=== PATIENT | female | born 1970 | race Caucasian/White ===

== ENCOUNTER 2017-06-18 05:42 | Emergency (ER) | payer OTHER ==
[2017-06-18 06:33] VITALS: BP 160/97
== END 2017-06-18 06:33 | disposition home or self-care (01) ==
LOC: ED 05:42
DX: R51 Headache (principal); E11.9 Type 2 diabetes mellitus without complications; H05.89 Other disorders of orbit; Z88.2 Allergy status to sulfonamides
CPT/HCPCS: 87491; 87591

== ENCOUNTER 2018-03-12 08:22 | Emergency (ER) | payer OTHER ==
[~2018-03-12] VITALS: Ht 165.1 cm; Wt 53.5 kg
[2018-03-12 08:33] VITALS: Ht 165.1 cm; Wt 53.5 kg
[2018-03-12 11:36] VITALS: BP 118/77
== END 2018-03-12 09:26 | disposition home or self-care (01) ==
LOC: ED 08:22
DX: S22.32XA Fracture of one rib, left side, initial encounter for closed fracture (principal); K59.00 Constipation, unspecified; E11.9 Type 2 diabetes mellitus without complications; F17.200 Nicotine dependence, unspecified, uncomplicated; M19.90 Unspecified osteoarthritis, unspecified site; Z88.2 Allergy status to sulfonamides; W18.39XA Other fall on same level, initial encounter; Y93.89 Activity, other specified; Y92.89 Other specified places as the place of occurrence of the external cause; Y99.8 Other external cause status
CPT/HCPCS: 99406

== ENCOUNTER 2018-06-08 09:11 | Emergency (ER) | payer OTHER ==
[~2018-06-08] VITALS: Ht 170.2 cm; Wt 59.0 kg
[2018-06-08 09:15] VITALS: Ht 170.2 cm; Wt 59.0 kg
[2018-06-08 09:45] VITALS: BP 152/88
[2018-06-08 10:03] LABS: BASOPHIL % 0.4 % (0-2); PLATELET COUNT 184 x10^3mcL (130-400); RED CELL DISTRIBUTION WIDTH 13.2 % (11.5-14.5)
[2018-06-08 10:21] LABS: CALCIUM 8.4 mg/dL (8.5-10.1); CARBON DIOXIDE 29.9 mmol/L (21-32); CHLORIDE SERUM 102 mmol/L (98-107); CREATININE SERUM 0.8 mg/dL (0.6-1.0); GFR1 > 60 mL/min; GLUCOSE SERUM 317 mg/dL (74-106); POTASSIUM SERUM 4.2 mmol/L (3.5-5.1); SODIUM SERUM 138 mmol/L (136-145)
[2018-06-08 10:26] LABS: ALKALINE PHOSPHATASE 90 U/L (46-116); ALT/SGPT 20 U/L (14-59); AST/SGOT 14 U/L (15-37); BILIRUBIN TOTAL 0.48 mg/dL (0.20-1.00); CHOLESTEROL 189 mg/dL (<200); TOTAL PROTEIN, SERUM 6.7 g/dL (6.4-8.2)
[2018-06-08 10:55] LABS: AMPHETAMINE QUAL UR POSITIVE (See below)
== END 2018-06-08 10:13 | disposition short-term general hospital (02) ==
LOC: ED 09:11
PROVIDERS: Specialist
DX: I62.9 Nontraumatic intracranial hemorrhage, unspecified (principal); M06.9 Rheumatoid arthritis, unspecified; E11.65 Type 2 diabetes mellitus with hyperglycemia; Z98.890 Other specified postprocedural states; Z88.2 Allergy status to sulfonamides
CPT/HCPCS: 36415; 36600; G0480; Q0092